=== PATIENT | female | born 1945 | race Caucasian/White ===

== ENCOUNTER 2016-04-06 12:37 | Emergency (ER) | payer MEDICARE ==
[2016-04-06 13:10] VITALS: BP 189/89
--- NOTE | 2016-04-06 13:23 | PHYS DOC ---
Past Medical History Past Medical History: No Pertinent History Past Surgical History: Hysterectomy Additional Past Surgical Histo: BREAST IMPLANTS Alcohol Use: Rarely Drug Use: None Adult General Chief Complaint Chief Complaint: LACERATION/AVULSION [facility] HPI Patient is a 70 year old female presents the emergency room today with complaint of a laceration to her left index finger that occurred approximately one hour ago. Patient was using a yarn when she cut her finger. She denies any other injuries at this time. She reports she's had a tetanus shot within the past 5 years. Patient initially went to urgent care where the provider that saw her there said that she needs can the emergency department in the event that she may need a skin graft. Review of Systems Review of Systems Constitutional: Denies fever or chills [] Eyes: Denies change in visual acuity, redness, or eye pain [] HENT: Denies nasal congestion or sore throat [] Respiratory: Denies cough or shortness of breath [] Cardiovascular: No additional information not addressed in HPI [] GI: Denies abdominal pain, nausea, vomiting, bloody stools or diarrhea [] : Denies dysuria or hematuria [] Musculoskeletal: Denies back pain or joint pain [] Integument: Denies rash or skin lesions [] Neurologic: Denies headache, focal weakness or sensory changes [] Endocrine: Denies polyuria or polydipsia [] Current Medications Current Medications Current Medications Medications (Trade) Dose Ordered Sig/Tavo Start Time Stop Time Status Last Admin Dose Admin Lidocaine/ Epinephrine (Xylocaine 1%-Epi 1:100,000) 20 ml 1X ONCE 04/06/16 13:30 04/06/16 13:31 DC 04/06/16 13:28 20 ML Silver Nitrate/ Potassium Nitrate 4 each 1X ONCE 04/06/16 13:30 04/06/16 13:31 DC 04/06/16 13:30 4 EACH Allergies Allergies Allergies Coded Allergies Type Severity Reaction Last Updated Verified erythromycin base Allergy Intermediate caused ear problems 04/06/16 Yes Physical Exam Physical Exam Constitutional: Well developed, well nourished, no acute distress, non-toxic appearance. [] HENT: Normocephalic, atraumatic, bilateral external ears normal, oropharynx moist, no oral exudates, nose normal. [] Eyes: PERRLA, EOMI, conjunctiva normal, no discharge. [] Neck: Normal range of motion, no tenderness, supple, no stridor. [] Cardiovascular:Heart rate regular rhythm, no murmur [] Lungs & Thorax: Bilateral breath sounds clear to auscultation [] Abdomen: Bowel sounds normal, soft, no tenderness, no masses, no pulsatile masses. [] Skin: Warm, dry, no erythema, no rash. [] Back: No tenderness, no CVA tenderness. [] Extremities: Left index finger with a full-thickness/complete avulsion to the lateral aspect of the distal phalanx. The laceration does not involve the nail/ nailbed or the PIPJ. Flexor and extensor mechanism is intact. Distal phalanx is neurovascular intact with capillary refill less than 2 seconds. Neurologic: Alert and oriented X 3, normal motor function, normal sensory function, no focal deficits noted. [] Psychologic: Affect normal, judgement normal, mood normal. [] Current Patient Data Vital Signs Vital Signs Date Time Temp Pulse Resp B/P Pulse Ox O2 Delivery O2 Flow Rate FiO2 04/06/16 13:10 98.5 94 20 96 Room Air 98.5 EKG EKG [] Radiology/Procedures Radiology/Procedures 2.5 cm complete avulsion to the lateral aspect of the distal phalanx of the left index finger was anesthetized with 1% lidocaine with epinephrine. This was not a circumferential block. The area was chemically cauterized with silver nitrate sticks. Nonstick dressing was applied with a bulky pressure dressing applied over top of that and secured in place with Coban. Patient tolerated the procedure well. Course & Med Decision Making Course & Med Decision Making Pertinent Labs and Imaging studies reviewed. (See chart for details) [] Dragon Disclaimer Dragon Disclaimer This electronic medical record was generated, in whole or in part, using a voice recognition dictation system. Departure Departure Impression: Primary Impression: Laceration Disposition: 01 HOME, SELF-CARE Condition: IMPROVED Referrals: PADDY GALAN MD (PCP) Patient Instructions: Finger Avulsion Additional Instructions: 1. Keep this current dressing on until Saturday afternoon as discussed. 2. Take the medication as prescribed. 3. Follow-up with your primary care doctor on Saturday or Saturday of next week for wound check. Scripts Hydrocodone/Apap 5-325 ([place] 5-325 Tablet)1 Each Tablet1 Tab PO PRN Q6HRS PRN PAIN #10 TAB Prov:TONY CONNOLLY 04/06/16 TONY CONNOLLY Apr 06, 2016 13:23
[2016-04-06] MEDS ORDERED: LIDOCAINE 1%/EPI 1:100,000 20 ML VIAL. IJ ONE (13:30)
[2016-04-06] MEDS ORDERED: SILVER NITRATE STICK TP ONE (13:30)
[2016-04-06] MEDS ORDERED: HYDR-971 PO (13:51)
== END 2016-04-06 14:12 | disposition home or self-care (01) ==
LOC: ER 12:37
DX: S61.211A Laceration without foreign body of left index finger without damage to nail, initial encounter (principal); Z88.1 Allergy status to other antibiotic agents; Y28.8XXA Contact with other sharp object, undetermined intent, initial encounter; Y93.89 Activity, other specified; Y99.8 Other external cause status; Y92.89 Other specified places as the place of occurrence of the external cause
CPT/HCPCS: 11730; 99284; J3490

== ENCOUNTER → 2017-09-11 | Outpatient (CLI) | payer BC | END | disposition home or self-care (01) | LOC: KCIC 13:42 | DX: R05 Cough (principal); R09.89 Other specified symptoms and signs involving the circulatory and respiratory systems | CPT/HCPCS: 71046 ==